=== PATIENT | female | born 1955 | race Caucasian/White ===

== ENCOUNTER → 2019-01-12 | Outpatient (CLI) | payer MEDICARE, OTHER ==
[2019-01-12 10:17] LABS: BASO % 1 % (0-3); EOS # 0.1 x10^3/uL (0.0-0.7); EOS % 2 % (0-3); HEMATOCRIT 46.8 % (36.0-47.0); HEMOGLOBIN 15.4 g/dL (12.0-15.5); LYMPH # 1.4 x10^3/uL (1.0-4.8); LYMPH % 31 % (24-48); MEAN CORPUSCULAR HEMOGLOBIN 30 pg (25-35); MEAN CORPUSCULAR HGB CONC 33 g/dL (31-37); MEAN CORPUSCULAR VOLUME 91 fL (79-100); MONO # 0.4 x10^3/uL (0.0-1.1); MONO % 8 % (0-9); NEUT # 2.6 x10^3uL (1.8-7.7); NEUT % 58 % (31-73); PLATELET COUNT 310 x10^3/uL (140-400); RED BLOOD COUNT 5.13 x10^6/uL (3.50-5.40); RED CELL DISTRIBUTION WIDTH 13.1 % (11.5-14.5); WHITE BLOOD COUNT 4.5 x10^3/uL (4.0-11.0)
[2019-01-12 10:27] LABS: ALBUMIN 3.8 g/dL (3.4-5.0); CALCIUM 9.3 mg/dL (8.5-10.1); CREATININE 0.8 mg/dL (0.6-1.0); POTASSIUM 3.9 mmol/L (3.5-5.1); TOTAL BILIRUBIN 0.4 mg/dL (0.2-1.0); TOTAL PROTEIN 7.8 g/dL (6.4-8.2)
[2019-01-12 14:03] LABS: THYROID STIM HORMONE (TSH) 2.841 uIU/mL (0.358-3.740)
--- NOTE | 2019-01-18 16:37 | RAD ---
DATE: 07/19/2015 EXAM: MAMMO GERMÁN SCREENING BILATERAL HISTORY: Annual screening COMPARISON: 07/01/2013, 07/07/2014, 07/19/2015 mammographic exam This study was interpreted with the benefit of Computerized Aided Detection (CAD). Breast Density: HETERO The breast parenchyma is heterogenously dense, which could reduce sensitivity of mammography. Breast parenchyma level C. FINDINGS: No suspicious calcifications. No dominant mass. Asymmetry involving the anterior right outer retroareolar region is present. This likely represent summation of breast parenchyma. No distortion. IMPRESSION: Asymmetry at the anterior right outer breast. Spot compression imaging of the right outer breast is recommended. Ultrasound may be needed. BI-RADS CATEGORY: 0 INCOMPLETE: NEEDS ADDITIONAL IMAGING EVALUATION AND/OR PRIOR MAMMOGRAMS FOR COMPARISON. RECOMMENDED FOLLOW-UP: ADD ADDITIONAL IMAGING PQRS compliance statement: Patient information was entered into a reminder system with a target due date of now for the next mammogram. Mammography is a sensitive method for finding small breast cancers, but it does not detect them all and is not a substitute for careful clinical examination. A negative mammogram does not negate a clinically suspicious finding and should not result in delay in biopsying a clinically suspicious abnormality. "Our facility is accredited by the [employer] Mammography Program."
== END | disposition home or self-care (01) ==
LOC: MAMMO 08:56
PROVIDERS: ATTEND Obstetrics & Gynecology
DX: Z01.419 Encounter for gynecological examination (general) (routine) without abnormal findings (principal); Z12.31 Encounter for screening mammogram for malignant neoplasm of breast; Z83.3 Family history of diabetes mellitus; R79.9 Abnormal finding of blood chemistry, unspecified; E78.2 Mixed hyperlipidemia
CPT/HCPCS: 36415; 77063; 77067; 80053; 80061; 84443; 85025

== ENCOUNTER → 2019-01-24 | Outpatient (CLI) | payer MEDICARE, OTHER ==
--- NOTE | 2019-01-24 10:24 | RAD ---
DATE: 01/24/2019 EXAM: DIGITAL DIAGNOSTIC RT, BREAST RIGHT HISTORY: Suspicious screening study COMPARISON: 01/12/2019, 01/17/2015, 07/07/2014, 07/01/2013 This study was interpreted with the benefit of Computerized Aided Detection (CAD). Breast Density: HETERO The breast parenchyma is heterogenously dense, which could reduce sensitivity of mammography. Breast parenchyma level C. FINDINGS: Spot compression views of the area of concern in the right lateral retroareolar region demonstrates heterogeneous fibroglandular shadows similar to those seen on previous exams. No mass is identified. Right breast ultrasound, 01/24/2019: A targeted ultrasound exam of the lateral retroareolar region reveals heterogeneous fibroglandular tissues. No solid mass or abnormal fluid collection is seen. IMPRESSION: 1. There is no mammographic evidence of malignancy in the right breast. 2. The targeted right breast ultrasound reveals no abnormality. 3. Routine yearly mammographic follow-up is suggested. BI-RADS CATEGORY: 1 NEGATIVE RECOMMENDED FOLLOW-UP: 12M 12 MONTH FOLLOW-UP PQRS compliance statement: Patient information was entered into a reminder system with a target due date for the next mammogram. Mammography is a sensitive method for finding small breast cancers, but it does not detect them all and is not a substitute for careful clinical examination. A negative mammogram does not negate a clinically suspicious finding and should not result in delay in biopsying a clinically suspicious abnormality. "Our facility is accredited by the [employer] Mammography Program."
== END | disposition home or self-care (01) ==
LOC: MAMMO 08:40
PROVIDERS: ATTEND Obstetrics & Gynecology
DX: R92.8 Other abnormal and inconclusive findings on diagnostic imaging of breast (principal)
CPT/HCPCS: 76641; 77065